=== PATIENT | female | born 1990 | race Caucasian/White ===

== ENCOUNTER 2018-01-02 08:56 | Emergency (ER) | payer OTHER, SELFPAY ==
[2018-01-02 09:22] VITALS: BP 110/71; PULSE 63; RESP 18; TEMP 36.8; O2SAT 100; BMI 21.6
[2018-01-02] MEDS: MAG HYDROX/ALUMINUM/SIMETH SUS 20 ML, LIDOCAINE VISCOUS 2% 15 ML PO (10:35)
--- NOTE | 2018-01-02 10:37 | PC.NURSE ---
Attempts x2 for IV. Unsuccessful. Pt req no IV at this time. Labs were drawn from attempted IV
[2018-01-02 11:01] LABS: Appearance Urine UA CLEAR; Bilirubin Urine UA NEGATIVE (NEGATIVE); Color Urine UA YELLOW; Glucose Urine UA NEGATIVE (Normal); Ketones Urine UA 1+ (NEGATIVE); Leukocyte Esterase Urine UA NEGATIVE (NEGATIVE); Nitrite Urine UA Negative (Negative); Occult Blood Urine UA 1+ (Negative); Protein Urine UA TRACE (Negative); Urobilinogen Urine UA 0.2 E.U./dL (0.2); pH Urine UA 6.5 (4.5-8.0)
--- NOTE | 2018-01-02 11:08 | PC.NURSE ---
Pt gave permission to share medical information w/ parents. Father updated per patient request.
[2018-01-02 11:13] LABS: Bacteria Urine Moderate (10-30); Culture Indicated Urine Cult Not Indicated; RBC Urine 0-1/HPF (0-5/HPF); Squamous Epithelial Cell Urine 1-5 /HPF; WBC Urine 1-5/HPF (0-5/HPF)
[2018-01-02 11:25] LABS: Alanine Aminotransferase 22 IU/L (9-52); Albumin 4.6 g/dL (3.5-5.0); Albumin Globulin Ratio 1.4 (1.0-2.8); Alkaline Phosphatase 65 U/L (38-126); Aspartate Aminotransferase 37 IU/L (14-36); Bilirubin Total 1.5 mg/dL (0.2-1.3); Blood Urea Nitrogen 5 mg/dL (7-17); Calcium 9.7 mg/dL (8.4-10.2); Carbon Dioxide 23 mmol/L (22-32); Chloride 105 mmol/L (98-107); Estimated Glomerular Filt Rate > 60.0 mL/min (>60); Globulin 3.2 g/dL (1.7-4.1); Glucose 85 mg/dL (70-100); Lipase 29 U/L (23-300); Potassium 3.9 mmol/L (3.4-5.1); Sodium 141 mmol/L (137-145); Total Protein 7.8 g/dL (6.3-8.2)
--- NOTE | 2018-01-02 11:31 | PC.NURSE ---
Lab will come re draw cbc tube as clotted.
[2018-01-02 11:37] LABS: HEMOLYSIS 89 (0-50)
[2018-01-02 11:43] LABS: Pregnancy Test Serum,Qual Negative (Negative)
[2018-01-02 12:00] LABS: Add Manual Diff / Slide Review NO; Basophils Percent Auto 0.5 % (0-2); Eosinophils Percent Auto 0.1 % (2-4); Hematocrit 35.2 % (36-46); Hemoglobin 12.6 g/dL (12.0-16.0); Lymphocytes Percent Auto 22.7 % (25-40); Mean Corpuscular HGB Conc 35.9 % (30-36); Monocytes Percent Auto 8.4 % (3-14); Neutrophils Absolute Auto 4500 /uL (3000-5900); Neutrophils Percent Auto 68.3 % (50-75); Platelet Count 250 X10^3/uL (150-400); Red Blood Cell Count 3.82 X10^6/uL (4.0-5.2); Red Cell Distribution Width 12.7 % (11.6-14.8); White Blood Cell Count 6.6 X10^3/uL (4.5-11.0)
--- NOTE | 2018-01-02 12:34 | DI.CT.S_ITS ---
PROCEDURE: CT ABDOMEN PELVIS W CON INDICATIONS: rlq pain TECHNIQUE: After the administration of oral and intravenous contrast, 5 mm thick sections acquired from the diaphragms to the symphysis. 5 mm thick coronal and sagittal reformats were performed. For radiation dose reduction, the following was used: automated exposure control, adjustment of mA and/or kV according to patient size. COMPARISON: None. FINDINGS: Image quality: Excellent. ABDOMEN: Lung bases: Lung bases are clear. Heart size is normal. Solid organs: There is a small ovoid hypodensity in the right hepatic lobe which is too small to characterize, measuring approximately 0.7 cm but likely represents a cyst. Gallbladder appears within normal limits without calcified gallstones. Biliary system is non-dilated. Pancreas enhances normally. Spleen is normal in size and enhancement. No adrenal nodules. Kidneys are normal in size and enhancement, without hydronephrosis. Peritoneum and bowel: Stomach, small bowel, and colon loops are normal in caliber and wall thickness. There is a short segment enteroenteric small bowel intussusception in the left paracentral region of the mid abdomen involving the jejunum without associated mild traction. No discrete mass identified. There is intussusception of the bowel by approximately 3 cm. The appendix is normal in appearance. There is a small amount of pelvic free fluid which appears within physiologic limits. Nodes and vessels: No retroperitoneal or mesenteric adenopathy. Aorta and inferior vena cava are normal in caliber. Miscellaneous: No ventral hernias. PELVIS: Genitourinary: The right ovary is mildly enlarged, measuring up to approximately 4.9 cm in dimension. There is a peripherally enhancing involuted cyst in the right ovary suggestive of a corpus luteal cyst. A small amount of endometrial fluid is present compatible physiologic changes. Bladder wall thickness is normal. Miscellaneous: No inguinal hernias or adenopathy. Bones: No suspicious bony lesions. No vertebral body compression fractures. IMPRESSION: 1. No evidence of appendicitis. 2. Mild enlargement of the right ovary with a peripherally enhancing involuted cyst compatible with a corpus luteal cyst. 3. Small amount of free fluid in the pelvis appears within physiologic limits. 4. Short segment enteroenteric small bowel intussusception in the left abdomen without associated bowel obstruction or discrete mass lesion. Dictated by: Adalid Grant M.D. on 01/02/2018 at 13:27 Approved by: Adalid Grant M.D. on 01/02/2018 at 13:33
--- NOTE | 2018-01-02 12:36 | PC.NURSE ---
Pt decides she wants both CT and US. Then decides just CT will be ok. Will have IV start by Jolie BOOGIE
[2018-01-02] MEDS: SODIUM CHLORIDE 0.9% 1,000 ML 1000 ML IV (12:47)
[2018-01-02] MEDS: ONDANSETRON 4 MG/2 ML INJ IV ×2 (12:47→16:20)
[2018-01-02 12:52] VITALS: BP 94/62; PULSE 61; RESP 14; O2SAT 98
[2018-01-02 13:37] LABS: Urine Cocaine Negative (Negative); Urine Morphine/Opi cutoff 2000 Negative (Negative); Urine Tetrahydrocannabinol Positive (Negative)
[2018-01-02 13:38] LABS: Urine Amphetamines Negative (Negative); Urine Barbiturates Negative (Negative); Urine Benzodiazepines Negative (Negative); Urine MDMA Negative (Negative); Urine Methadone Negative (Negative); Urine Methamphetamines Negative (Negative); Urine Oxycodone Negative (Negative); Urine Phencyclidine Negative (Negative); Urine Tricyclic Antidepressant Positive (Negative)
[2018-01-02 14:15] VITALS: BP 102/55; PULSE 71; RESP 15; O2SAT 100
--- NOTE | 2018-01-02 14:45 | PC.NURSE ---
Pt states her IV 'stings'. Flushed easily, + blood return. No s/s of infiltration. Hot pack placed over area w/ resolution of symptoms. Encouraged to let staff know if pain returns;.
--- NOTE | 2018-01-02 15:43 | PC.NURSE ---
Pt states hand is numb and tingling where IV site is. IV is patent and w/o symptoms. Heat is placed and pt understands that it is probably her reaction to the IV itself.
--- NOTE | 2018-01-02 15:44 | P.CONS_ITS ---
History of Present Illness Date Patient Seen: 01/02/18 Time Patient Seen: 15:28 Chief complaint: upper abdominal pain Reason for consult: Intussusception Narrative: The patient is a woman who is visiting her parents. She normally lives in [place]. She has been having intermittent epigastric abdominal pain for about 6 months. It seems to come and go with no rhyme or reason. It is often accompanied by nausea and dry heaves. It then spontaneously resolves. The episodes are getting worse and this is the worst episode ever. It has been present for at least 2 days. Pain is mainly in the epigastrium this episode but sometimes it can be elsewhere in the abdomen. She does have a history of kidney stones but she does not recall what side. She has no blood in her urine at this time. An aunt(mother's fraternal twin) had ovarian cancer. She is now . She developed it at a young age. Her mother is alive and well. There is no other family history of cancer. [facility] Social History Smoking Status: Current every day smoker Comment: Works as an [employer] Allergies Allergy/AdvReac Type Severity Reaction Status Date / Time No Known Drug Allergies Allergy Verified 01/02/18 09:25 Review of Systems Review of Systems All systems reviewed & are unremarkable except as noted in HPI and below Exam Vital Signs (past 8 hours): - 01/02/18 09:22 01/02/18 12:52 01/02/18 14:15 Temperature 98.2 F Pulse Rate 63 61 71 Respiratory Rate 18 14 15 Blood Pressure 110/71 Blood Pressure [Left Arm] 94/62 102/55 L Pulse Oximetry 100 98 100 Oxygen Delivery Method Room Air Narrative Exam Narrative: 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 Her eyes are nonicteric. Pupils equal round reactive to light. Neck is supple. No masses or nodes. Lungs are clear to auscultation without rales or rhonchi. Equal to percussion. Heart regular rate and rhythm without murmur or gallop. Her abdomen is scaphoid and soft. There are no scars. Liver and spleen are not enlarged. She has localized tenderness just above and to the left of her umbilicus. The epigastrium is nontender despite the fact that is where she feels her pain. She is alert and oriented x3 speech rate and content are appropriate. Affect is appropriate. Objective Imaging CT scan - abdomen: My impression: Patient has an intussusception just distal to the ligament of Treitz. The duodenum is not dilated at this time. No other lesions appreciated in the abdomen or pelvis to my reading. Radiologist's impression: Radiologist describes an entero entero intussusception and an enlarged ovary that is probably normal Labs Result Diagrams: 01/02/18 11:45 01/02/18 10:30 Labs: Laboratory Results - last 24 hr 01/02/18 01/02/18 01/02/18 10:30 10:30 10:30 WBC RBC Hgb Hct MCV MCH MCHC RDW Plt Count Neut % (Auto) Lymph % (Auto) Jenkins % (Auto) Eos % (Auto) Baso % (Auto) Neut # (Auto) Sodium 141 Potassium 3.9 Chloride 105 Carbon Dioxide 23 BUN 5 L Creatinine 0.50 L Estimated GFR > 60.0 BUN/Creatinine Ratio 10.0 Glucose 85 Calcium 9.7 Total Bilirubin 1.5 H AST 37 H ALT 22 Alkaline Phosphatase 65 Total Protein 7.8 Albumin 4.6 Globulin 3.2 Albumin/Globulin Ratio 1.4 Lipase 29 Serum , Qual Negative Urine Color Yellow Urine Appearance Clear Urine pH 6.5 Ur Specific [place] 1.010 Urine Protein Trace H Urine Glucose (UA) Negative Urine Ketones 1+ H Urine Occult Blood 1+ H Urine Nitrate Negative Urine Bilirubin Negative Urine Urobilinogen 0.2 Ur Leukocyte Esterase Negative Urine RBC 0-1/hpf Urine WBC 1-5/hpf Ur Squamous Epith Cells 1-5 /hpf Urine Bacteria Moderate (10-30) H Ur Culture Indicated? Cult not indicated Micro UA Comment Not Reportable Urine Opiates Screen Ur Oxycodone Screen Urine Methadone Screen Ur Barbiturates Screen U Tricyclic Antidepress Ur Phencyclidine Scrn Ur Amphetamines Screen U Methamphetamines Scrn Ur MDMA Scrn (Ecstasy) U Benzodiazepines Scrn Urine Cocaine Screen U Marijuana (THC) Screen 01/02/18 01/02/18 10:30 11:45 WBC 6.6 RBC 3.82 L Hgb 12.6 Hct 35.2 L MCV 92.0 MCH 33.0 MCHC 35.9 RDW 12.7 Plt Count 250 Neut % (Auto) 68.3 Lymph % (Auto) 22.7 L Jenkins % (Auto) 8.4 Eos % (Auto) 0.1 L Baso % (Auto) 0.5 Neut # (Auto) 4500 Sodium Potassium Chloride Carbon Dioxide BUN Creatinine Estimated GFR BUN/Creatinine Ratio Glucose Calcium Total Bilirubin AST ALT Alkaline Phosphatase Total Protein Albumin Globulin Albumin/Globulin Ratio Lipase Serum , Qual Urine Color Urine Appearance Urine pH Ur Specific [place] Urine Protein Urine Glucose (UA) Urine Ketones Urine Occult Blood Urine Nitrate Urine Bilirubin Urine Urobilinogen Ur Leukocyte Esterase Urine RBC Urine WBC Ur Squamous Epith Cells Urine Bacteria Ur Culture Indicated? Micro UA Comment Urine Opiates Screen Negative Ur Oxycodone Screen Negative Urine Methadone Screen Negative Ur Barbiturates Screen Negative U Tricyclic Antidepress Positive H Ur Phencyclidine Scrn Negative Ur Amphetamines Screen Negative U Methamphetamines Scrn Negative Ur MDMA Scrn (Ecstasy) Negative U Benzodiazepines Scrn Negative Urine Cocaine Screen Negative U Marijuana (THC) Screen Positive H Assessment & Plan (1) Intussusception of jejunum: Current visit: Yes Status: Acute Plan: Assessment/Plan Narrative: The patient's history is classic for an intussusception with intermittent pain. This is a rare cause of an obstruction in an adult and most often involves a tumor with a lead point. Half o of them are malignant. The location of this intussusception gives me pause as I believe it is just distal to the ligament of Treitz. Resection here could be quite problematic and in my hands would most likely require an open procedure, though I could start laparoscopically to see if my assessment is accurate. Having said that, being juan with the patient I explained that my intra corporeal anastomotic skills are limited and others may well have a better ability to do this laparoscopically or even robotically(we lack a robot). Scars are a grave concern to this patient because of her career. It could impact her ability to work in her chosen field. (the 1st question that she asked was if we had a plastic surgeon). Though she is trying to be diplomatic it is clear she would prefer this be done at a larger institution with access to a variety of disciplines. I cannot fall to her for that. I have asked the ER doctor to contact Melanie pop as I do think the patient would probably benefit overall from a higher level of care, most especially because of the location of the intussusception.
[2018-01-02] MEDS: HYDROMORPHONE 0.5 MG INJ IV (16:20)
[2018-01-02 17:00] VITALS: BP 111/68; PULSE 68; RESP 15; O2SAT 100
--- NOTE | 2018-01-02 17:10 | ED.ABDPAIN ---
HPI - Abdominal Pain General Chief Complaint: Abdominal Pain Stated Complaint: upper abdominal pain History of Present Illness HPI narrative: HPI 27-year-old female presents for evaluation of epigastric discomfort is poorly characterize, appears to be worsened with taking PO, mild nausea, and mild right upper and right lower quadrant discomfort of approximately one day duration. No prior surgical history. Denies dysuria, urinary frequency, no vaginal discharge or discomfort, continues pass flatus and stool at baseline. M/S/F/SocHx notable for: please see HPI; remainder reviewed with patient and in chart. ROS: Negative constitutional, eye, cardiovascular, pulmonary, GI, , MSK, skin, neurologic, psychiatric, endocrine unless noted in the HPI. Exam Gen: Pleasant, non-toxic appearing, resting comfortably. HEENT: NC, AT, PEERL, EOMI. Resp: Clear to auscultation bilaterally, normal work of breathing, no accessory muscle usage. Card: Regular rate and rhythm with no murmurs, rubs, or gallops, extremities warm and well perfused. GI: mild right upper quadrant tenderness to palpation without rebound or guarding, negative Lamas's sign, minimal to no epigastric tenderness palpation, mild right lower quadrant tenderness to palpation, remainder of abdomen nontender to palpation. : No suprapubic tenderness to palpation. MSK: No visible deformities, strength and tone without visually appreciable deficit. Skin: Normal color with no visible lesions. Neuro: AO x 3, no facial asymmetry, vision and hearing WNL. Psych: Mood and affect appropriate. Labs / Imaging: WBC 6.6, HB 12.6 sodium 141, potassium 3.9, total bilirubin 1.5, AST 37, ALT 22, alkaline phosphatase 65, lipase 29 negative hCG UDS - TCA, THC UA - negative nitrite, 1+ occult blood, 1+ ketones, moderate bacteria, 1-5 squamous epithelial cells, negative leukocyte esterase, negative nitrates. Focused Biliary Ultrasound Indication: Right upper quadrant pain. Views Obtained: Transverse and longitudinal biliary views. Findings: Negative sonographic Lamas sign. No stones or sludge appreciated. Perpendicular measurement of the anterior gallbladder wall at 2.[address] per[address]ole[address]stic fluid. CT Abd/Pelvis: 1. No evidence of appendicitis. 2. Mild enlargement of the right ovary with a peripherally enhancing involuted cyst compatible with a corpus luteal cyst. 3. Small amount of free fluid in the pelvis appears within physiologic limits. 4. Short segment enteroenteric small bowel intussusception in the left abdomen without associated bowel obstruction or discrete mass lesion. MDM Previous chart, nursing note, labs, imaging, and vitals reviewed. A: 27-year-old female presents for evaluation of epigastric discomfort is poorly characterize, appears to be worsened with taking PO, mild nausea, and mild right upper and right lower quadrant discomfort of approximately one day duration. DDx: biliary disease (cholelithiasis, choledocholithiasis, cholecystitis, cholangitis), pancreatitis, gastritis, GERD, ulcer, gastroenteritis, appendicitis, pseudoappendicitis, UTI, pyelonephritis, . Evaluation: patient with relatively mild abdominal exam, normal white blood cell count, and absence of fever, given the overall consolation symptoms are intrabdominal strongly doubt pericarditis, myocarditis or other supradiaphragmatic cause of the patient's symptoms. UA without evidence of infection. Negative urine test. CBC, CMP, lipase WNL. Significant delay encountered in obtaining a CT abdomen pelvis, patient initially agreeable to imaging, noted discomfort with IV, declined imaging for several hours, after repeat discussion patient elected to pursue imaging, perseverating between CT (preferred) and ultrasound (felt to be less likely value), patient eventually agreeable with CT, this was obtained, notable for a short segment enteroenteric small bowel intussusception. Surgical consultation obtained, patient is not appropriate for intervention this facility. Dr. Jackson contacted at [facility], patient accepted in transfer. Discussion was had with the patient regarding transfer by ambulance versus POV, patient wished to be transferred by personal vehicle. As the patient's labs, vitals, and exam are within acceptable limits and the patient is minimal symptoms she is appropriate for transfer by private vehicle. Patient aware of slightly increased, made decision after full discussion of risks and benefits. Impression: intussusception (please reference below for remainder of encounter information) Related Data Allergies Allergy/AdvReac Type Severity Reaction Status Date / Time No Known Drug Allergies Allergy Verified 01/02/18 09:25 [facility] Social History Smoking Status: Current every day smoker Exam Initial Vital Signs Initial Vital Signs: Vital Signs Temperature 98.2 F 01/02/18 09:22 Pulse Rate 63 01/02/18 09:22 Respiratory Rate 18 01/02/18 09:22 Blood Pressure 110/71 01/02/18 09:22 Pulse Oximetry 100 01/02/18 09:22 Course Orders Ordered: ED Orders 01/02/18 10:30 Comprehensive Metabolic Panel Stat Lipase Stat Test Serum,Qual Stat Urinalysis and Microscopic Stat Urine Drug Screen, Rapid Stat 01/02/18 11:45 Complete Blood Count AUTO DIFF Stat 01/02/18 12:34 CT abdomen pelvis w con Stat Discontinued Medications Al Hydrox/Mg Hydrox/Simethicone 20 ml/ Lidocaine HCl 15 ml 0 ml PO NOW ONE Stop: 01/02/18 09:53 Last Admin: 01/02/18 10:35 Dose: 20 ml Hydromorphone HCl (Dilaudid) 0.5 mg IV NOW ONE Stop: 01/02/18 16:16 Last Admin: 01/02/18 16:20 Dose: 0.5 mg Sodium Chloride (Normal Saline 0.9%) 1,000 mls @ 1,000 mls/hr IV BOLUS ONE Stop: 01/02/18 10:51 Last Infusion: 01/02/18 13:50 Dose: 0 mls/hr Admin: 01/02/18 12:47 Dose: 1,000 mls/hr Ondansetron HCl (Zofran) 4 mg IV NOW ONE Stop: 01/02/18 09:53 Last Admin: 01/02/18 12:47 Dose: 4 mg Ondansetron HCl (Zofran) 4 mg IV NOW ONE Stop: 01/02/18 16:16 Last Admin: 01/02/18 16:20 Dose: 4 mg Vital Signs - 8 hr 01/02/18 09:22 01/02/18 12:52 01/02/18 14:15 Temperature 98.2 F Pulse Rate 63 61 71 Respiratory Rate 18 14 15 Blood Pressure 110/71 Blood Pressure [Left Arm] 94/62 102/55 L Pulse Oximetry 100 98 100 01/02/18 17:00 Temperature Pulse Rate 68 Respiratory Rate 15 Blood Pressure Blood Pressure [Left Arm] 111/68 Pulse Oximetry 100 MDM - Abdominal Pain Lab Data Result diagrams: 01/02/18 11:45 01/02/18 10:30 Lab Results 01/02/18 01/02/18 01/02/18 Range/Units 10:30 10:30 10:30 WBC (4.5-11.0) X10^3/uL RBC (4.0-5.2) X10^6/uL Hgb (12.0-16.0) g/dL Hct (36-46) % MCV (80-100) fL MCH (26-34) PG MCHC (30-36) % RDW (11.6-14.8) % Plt Count (150-400) X10^3/uL Neut % (Auto) (50-75) % Lymph % (Auto) (25-40) % [place] % (Auto) (3-14) % Eos % (Auto) (2-4) % Baso % (Auto) (0-2) % Neut # (Auto) (3341-3556) /uL Sodium 141 (137-145) mmol/L Potassium 3.9 (3.4-5.1) mmol/L Chloride 105 (98-107) mmol/L Carbon Dioxide 23 (22-32) mmol/L BUN 5 L (7-17) mg/dL Creatinine 0.50 L (0.52-1.04) mg/dL Estimated GFR > 60.0 (>60) mL/min BUN/Creatinine Ratio 10.0 (6-22) Glucose 85 (70-100) mg/dL Calcium 9.7 (8.4-10.2) mg/dL Total Bilirubin 1.5 H (0.2-1.3) mg/dL AST 37 H (14-36) IU/L ALT 22 (9-52) IU/L Alkaline Phosphatase 65 (38-126) U/L Total Protein 7.8 (6.3-8.2) g/dL Albumin 4.6 (3.5-5.0) g/dL Globulin 3.2 (1.7-4.1) g/dL Albumin/Globulin Ratio 1.4 (1.0-2.8) Lipase 29 (23-300) U/L Serum , Qual Negative (Negative) Urine Color Yellow Urine Appearance Clear Urine pH 6.5 (4.5-8.0) Ur Specific [place] 1.010 (1.000-1.035) Urine Protein Trace H (Negative) Urine Glucose (UA) Negative (Normal) g/dL Urine Ketones 1+ H (NEGATIVE) Urine Occult Blood 1+ H (Negative) Urine Nitrate Negative (Negative) Urine Bilirubin Negative (NEGATIVE) Urine Urobilinogen 0.2 (0.2) E.U./dL Ur Leukocyte Esterase Negative (NEGATIVE) Urine RBC 0-1/hpf (0-5/HPF) Urine WBC 1-5/hpf (0-5/HPF) Ur Squamous Epith Cells 1-5 /hpf Urine Bacteria Moderate (10-30) H (None) Ur Culture Indicated? Cult not indicated Micro UA Comment Not Reportable Urine Opiates Screen (Negative) Ur Oxycodone Screen (Negative) Urine Methadone Screen (Negative) Ur Barbiturates Screen (Negative) U Tricyclic Antidepress (Negative) Ur Phencyclidine Scrn (Negative) Ur Amphetamines Screen (Negative) U Methamphetamines Scrn (Negative) Ur MDMA Scrn (Ecstasy) (Negative) U Benzodiazepines Scrn (Negative) Urine Cocaine Screen (Negative) U Marijuana (THC) Screen (Negative) 01/02/18 01/02/18 Range/Units 10:30 11:45 WBC 6.6 (4.5-11.0) X10^3/uL RBC 3.82 L (4.0-5.2) X10^6/uL Hgb 12.6 (12.0-16.0) g/dL Hct 35.2 L (36-46) % MCV 92.0 (80-100) fL MCH 33.0 (26-34) PG MCHC 35.9 (30-36) % RDW 12.7 (11.6-14.8) % Plt Count 250 (150-400) X10^3/uL Neut % (Auto) 68.3 (50-75) % Lymph % (Auto) 22.7 L (25-40) % [place] % (Auto) 8.4 (3-14) % Eos % (Auto) 0.1 L (2-4) % Baso % (Auto) 0.5 (0-2) % Neut # (Auto) 4500 (1592-5186) /uL Sodium (137-145) mmol/L Potassium (3.4-5.1) mmol/L Chloride (98-107) mmol/L Carbon Dioxide (22-32) mmol/L BUN (7-17) mg/dL Creatinine (0.52-1.04) mg/dL Estimated GFR (>60) mL/min BUN/Creatinine Ratio (6-22) Glucose (70-100) mg/dL Calcium (8.4-10.2) mg/dL Total Bilirubin (0.2-1.3) mg/dL AST (14-36) IU/L ALT (9-52) IU/L Alkaline Phosphatase (38-126) U/L Total Protein (6.3-8.2) g/dL Albumin (3.5-5.0) g/dL Globulin (1.7-4.1) g/dL Albumin/Globulin Ratio (1.0-2.8) Lipase (23-300) U/L Serum , Qual (Negative) Urine Color Urine Appearance Urine pH (4.5-8.0) Ur Specific [place] (1.000-1.035) Urine Protein (Negative) Urine Glucose (UA) (Normal) g/dL Urine Ketones (NEGATIVE) Urine Occult Blood (Negative) Urine Nitrate (Negative) Urine Bilirubin (NEGATIVE) Urine Urobilinogen (0.2) E.U./dL Ur Leukocyte Esterase (NEGATIVE) Urine RBC (0-5/HPF) Urine WBC (0-5/HPF) Ur Squamous Epith Cells Urine Bacteria (None) Ur Culture Indicated? Micro UA Comment Urine Opiates Screen Negative (Negative) Ur Oxycodone Screen Negative (Negative) Urine Methadone Screen Negative (Negative) Ur Barbiturates Screen Negative (Negative) U Tricyclic Antidepress Positive H (Negative) Ur Phencyclidine Scrn Negative (Negative) Ur Amphetamines Screen Negative (Negative) U Methamphetamines Scrn Negative (Negative) Ur MDMA Scrn (Ecstasy) Negative (Negative) U Benzodiazepines Scrn Negative (Negative) Urine Cocaine Screen Negative (Negative) U Marijuana (THC) Screen Positive H (Negative)
--- NOTE | 2018-01-02 17:33 | PC.NURSE ---
S/W transfer center RN. PT leaves to get down to . Stable
== END 2018-01-02 17:15 | disposition short-term general hospital (02) ==
PROVIDERS: Emergency Provider Emergency Medicine
DX: K56.1 Intussusception (principal)
CPT/HCPCS: 36415; 74177; 80053; 80305; 81001; 83690; 84703; 85025; 96361; 96374; 96375; 96376; 99283; 99285; J1170; J2405

== ENCOUNTER → 2021-04-23 13:06 | Outpatient (CLI) | payer OTHER, SELFPAY ==
[2021-04-23 19:43] LABS: Add Manual Diff / Slide Review NO; Basophils Absolute Auto 0 /uL (0-100); Basophils Percent Auto 0.4 % (0-2); Eosinophils Absolute Auto 0 /uL (0-450); Eosinophils Percent Auto 0.4 % (2-4); Hematocrit 35.2 % (36-46); Hemoglobin 12.4 g/dL (12.0-16.0); Lymphocytes Absolute Auto 1800 /uL (1100-4500); Lymphocytes Percent Auto 27.9 % (25-40); Mean Corpuscular HGB Conc 35.1 % (30-36); Mean Corpuscular Hemoglobin 32.8 PG (26-34); Mean Corpuscular Volume 93.4 fL (80-100); Monocytes Absolute Auto 300 /uL (0-900); Monocytes Percent Auto 5.3 % (3-14); Neutrophils Absolute Auto 4200 /uL (1500-7000); Platelet Count 335 X10^3/uL (150-400); Red Blood Cell Count 3.77 X10^6/uL (4.0-5.2); Red Cell Distribution Width 12.3 % (11.6-14.8); White Blood Cell Count 6.4 X10^3/uL (4.5-11.0)
[2021-04-23 19:55] LABS: Alanine Aminotransferase 17 IU/L (<35); Albumin 4.2 g/dL (3.5-5.0); Albumin Globulin Ratio 1.5 (1.0-2.8); Alkaline Phosphatase 61 U/L (38-126); Aspartate Aminotransferase 25 IU/L (14-36); Bilirubin Total 1.2 mg/dL (0.2-1.3); Blood Urea Nitrogen 8 mg/dL (7-17); Calcium 9.6 mg/dL (8.4-10.2); Carbon Dioxide 27 mmol/L (22-32); Chloride 101 mmol/L (98-107); Estimated Glomerular Filt Rate > 60.0 mL/min (>60); Globulin 2.8 g/dL (1.7-4.1); Glucose 90 mg/dL (70-100); HEMOLYSIS < 15 (0-50); Potassium 3.8 mmol/L (3.4-5.1); Sodium 136 mmol/L (137-145)
[2021-04-23 20:12] LABS: C-Reactive Protein Quant < 0.5 mg/dL (<1.0)
[2021-04-23 20:25] LABS: Erythrocyte Sedimentation Rate 16 MM/HR (0-20)
[2021-04-23 21:05] LABS: Urine N gonorrhoeae NOT DETECTED
[2021-04-23 21:29] LABS: Urine Chlamydia NOT DETECTED
[2021-04-24 17:26] LABS: HIV 1 & 2 Ab/Ag 4th Gen Combo NEGATIVE (NEGATIVE)
[2021-04-25 08:42] LABS: RPR Screen Non Reactive (Non Reactive)
== END ==
PROVIDERS: PCP Physician Assistant; Referring Provider Physician Assistant; Visit Provider Physician Assistant
DX: Z00.00 Encounter for general adult medical examination without abnormal findings (principal); G89.29 Other chronic pain; M79.672 Pain in left foot; N92.1 Excessive and frequent menstruation with irregular cycle; R74.8 Abnormal levels of other serum enzymes; Z11.3 Encounter for screening for infections with a predominantly sexual mode of transmission
CPT/HCPCS: 80053; 85025; 85651; 86140; 86592; 87389; 87491; 87591

== ENCOUNTER → 2021-07-23 09:28 | Outpatient (CLI) | payer OTHER, SELFPAY ==
[2021-07-23 19:28] LABS: Glucose 86 mg/dL (70-100)
[2021-07-23 19:46] LABS: Free T4, Direct Thyroxine 1.23 ng/dL (0.78-2.19)
[2021-07-23 19:48] LABS: Luteinizing Hormone 8.37 mIU/mL
== END ==
PROVIDERS: PCP Physician Assistant; Visit Provider Obstetrics & Gynecology
DX: N97.0 Female infertility associated with anovulation (principal)
CPT/HCPCS: 82947; 83001; 83002; 83525; 84439

== ENCOUNTER → 2021-08-07 13:28 | Outpatient (CLI) | payer OTHER, SELFPAY ==
[2021-08-07 19:48] LABS: Thyroid Stimulating Hormone 0.982 uIU/mL (0.47-4.68)
[2021-08-12 11:50] LABS: Testosterone Free 0.48 ng/dL (0.10-0.85); Testosterone Total 34.1 ng/dL (10.0-55.0)
== END ==
PROVIDERS: PCP Physician Assistant; Visit Provider Obstetrics & Gynecology
DX: N97.0 Female infertility associated with anovulation (principal)
CPT/HCPCS: 84402; 84403; 84443

== ENCOUNTER → 2022-01-01 11:01 | Outpatient (CLI) | payer OTHER, SELFPAY ==
[2021-12-29 13:28] VITALS: BMI 22.6
[2022-01-01 11:19] VITALS: BMI 22.6
--- NOTE | 2022-01-01 11:41 | SUR.PREOP ---
Addendum entered by Silvina Jensen R.N. 01/01/22 13:47: [id number] cx procedure due to being bumped x 3 today and worry on availability / time of last ferry home. Message left on Dr Worley phone #. medical insurance collector Ericka calling Dr Xiong's office for rescheduling. Patient given ferry pass for home trip. Addendum entered by Silvina Jensen R.N. 01/01/22 13:30: 01/01/22 1330-Patient returned to Department for surgery. dressed and iv started. Original Note: 01/01/22-patient here,case delayed. admission done, then released to [facility] & will return at 1300 unless otherwise notified. all needed to do is IV start.
[2022-01-01 11:43] VITALS: BP 106/77; PULSE 76; RESP 100; TEMP 36.6; O2SAT 15
[2022-01-01 12:19] LABS: COVID19 -Nasal RAPID Negative (Negative)
== END ==
LOC: OR 01-02 09:44 → LAB 02-23 08:27
PROVIDERS: PCP Physician Assistant; Referring Provider Specialist; Visit Provider Specialist
DX: N92.0 Excessive and frequent menstruation with regular cycle (principal); N94.6 Dysmenorrhea, unspecified; Z30.430 Encounter for insertion of intrauterine contraceptive device; Z20.822 Contact with and (suspected) exposure to COVID-19; Z53.09 Procedure and treatment not carried out because of other contraindication
CPT/HCPCS: 58558; 81025; 87635